=== PATIENT | female | born 1980 ===

== ENCOUNTER 2016-06-30 09:48 | Emergency (ER) | payer OTHER ==
[2016-06-30 09:53] VITALS: TEMP 98.9; O2SAT 99
--- NOTE | 2016-06-30 10:23 | ED PDOC ---
HPI: Female Pain Time Seen by Provider: 06/30/16 09:53 Chief Complaint (Nursing): Weakness/Neurological Deficit Chief Complaint (Provider): Vomiting History Per: Patient Additional Complaint(s): pt is 12 weeks , LMP 04/06/16, , c/o feeling tired. Pt reports she did not feel this tired with her first . Pt denies nay abdominal natty, or vaginal bleeding. Pt reports that she is unsure of how to obtain gwen care, does not known how to get an [employer] and is confused on how to set up her delivery. Past Medical History Reviewed: Nursing Documentation, Vital Signs Vital Signs: Last Vital Signs Temp 98.9 F 06/30/16 09:52 Pulse 118 H 06/30/16 09:52 Resp 20 06/30/16 09:52 BP 136/84 06/30/16 09:52 Pulse Ox 99 06/30/16 09:52 - Medical History PMH: No Chronic Diseases - Surgical History Surgical History: No Surg Hx - Family History Family History: States: No Known Family Hx - Living Arrangements Living Arrangements: With Family - Social History Current smoker - smoking cessation education provided: No Alcohol: None Drugs: Denies - Allergies Allergies/Adverse Reactions: Allergies Allergy/AdvReac Type Severity Reaction Status Date / Time No Known Allergies Allergy Verified 06/30/16 10:05 Review of Systems ROS Statement: Except As Marked, All Systems Reviewed And Found Negative Physical Exam - Reviewed Nursing Documentation Reviewed: Yes Vital Signs Reviewed: Yes - Physical Exam Appears: Positive for: Well, Non-toxic, No Acute Distress Head Exam: Positive for: ATRAUMATIC, NORMAL INSPECTION, NORMOCEPHALIC Skin: Positive for: Normal Color, Warm, DRY Eye Exam: Positive for: EOMI, Normal appearance, PERRL ENT: Positive for: Normal ENT Inspection Neck: Positive for: Normal, Painless ROM Cardiovascular/Chest: Positive for: Regular Rate, Rhythm Respiratory: Positive for: CNT, Normal Breath Sounds Gastrointestinal/Abdominal: Positive for: Normal Exam, Bowel Sounds, Soft Back: Positive for: Normal Inspection Extremity: Positive for: Normal ROM Neurologic/Psych: Positive for: Alert, Oriented - ECG O2 Sat by Pulse Oximetry: 99 Medical Decision Making Medical Decision Making: Pt educated on related symptoms and how every is different. Pt placed in contact with registration in regards to questions about gwen care Pt given women's clinic to follow up with. Advised to return to ED if at anytime condition worsens Disposition - Clinical Impression Clinical Impression: -related symptom - Patient ED Disposition Is Patient to be Admitted: No - Disposition Disposition: Routine/Home Disposition Time: 10:33 Condition: STABLE - POA Present On Arrival: None
[2016-06-30 11:07] VITALS: BP 132/84; PULSE 91; RESP 18
== END 2016-06-30 10:35 | disposition home or self-care (01) ==
LOC: H.ER 09:48
DX: O21.9 Vomiting of pregnancy, unspecified (principal)

== ENCOUNTER 2017-01-06 08:14 | Inpatient (IN) | payer MEDICAID, SELFPAY ==
[2017-01-06 08:10] VITALS: BMI 43.2
[~2017-01-06 08:14] MED LIST: ceFAZolin IV 2 gm in Dextrose 2 GM/50 ML BAG IVPB ONE
[2017-01-06] MEDS ORDERED: Oxytocin 30 UNITS in Sodium Chloride 0.9% 500 ML IV ONE (08:18)
[2017-01-06] MEDS: Lactated Ringer's 1,000 ML IV SCH ×6 (08:30→20:46)
[2017-01-06 08:59] LABS: BASO % 0.2 % (0.0-2.0); EOS # 0.1 K/uL (0.0-0.7); EOS % 0.5 % (0.0-4.0); HEMATOCRIT 39.5 % (34.0-47.0); LYMPH # 2.2 K/uL (1.0-4.3); LYMPH % 16.5 % (20.0-40.0); MEAN CELL VOLUME 84.3 fl (81.0-99.0); MEAN CORPUSCULAR HEMOGLOBIN 27.5 pg (27.0-31.0); MEAN CORPUSCULAR HGB CONC 32.7 g/dL (33.0-37.0); MEAN PLATELET VOLUME 7.8 fl (7.2-11.7); MONO # 0.7 K/uL (0.0-0.8); MONO % 4.9 % (0.0-10.0); NEUT # 10.6 K/uL (1.8-7.0); NEUT % 77.9 % (50.0-75.0); NRBC % 0.1 % (0.0-0.0); RED CELL DISTRIBUTION WIDTH 17.3 % (11.5-14.5); WHITE BLOOD COUNT 13.6 K/uL (4.8-10.8)
[2017-01-06] MEDS ORDERED: Morphine 1 mg/ml preservative-free Inj(Duramorph) ONE (11:02)
[2017-01-06] MEDS ORDERED: ePHEDrine 50 mg/ml Inj ONE (12:18)
[2017-01-06] MEDS ORDERED: Naloxone 0.4 mg/ml Inj (Adult) IVP PRN (12:43)
[2017-01-06] MEDS ORDERED: Morphine 1 mg/ml preservative-free Inj(Duramorph) IT ONE (12:43)
[2017-01-06] MEDS ORDERED: DiphenhydrAMINE 50 mg/ml Inj IVP PRN (12:43)
[2017-01-06] MEDS ORDERED: Oxycodone/Acetaminophen 5/325 mg Tab PO PRN ×2 (13:28)
--- NOTE | 2017-01-06 13:29 | OBADHP ---
Datetime: 01/06/2017 08:22 Admit Comment, IP Provider: 36 yr old F at 39.2 wks GA , AMA, obese, GBS +, PPD+, CXR negative presents for scheduled repeat with BTL. Patient denies vaginal bleeding, leakage of fluid o r contractions. + movement. Denies any complications throughout this . Received routin e care at [facility]. labs: 3rd trimester HIV neg, RPR non-reactive, GBS negative, Gc/Ch neg/neg, PPD positive, CXR negative, HepB Ag neg, Rubella Immune, blood type A pos, Rh pos, Antibody negative, 1st tri scre ening within normal limits, limited/poor penetration on 2nd tri Level II US (patient did not get feta l echo recommended by MF ) OBhx: 2015 primary due to oligohydramnios PMHx: obesity SurgHx: FMHx: Mother HTN SocialHx: denies smoking, Etoh or drugs Meds: vitamins and ferrous sulfate Allergies: NKDA PE: General: patient comfortable and in no acute distress HEENT: normocephalic, atraumatic Cardiovascular: S1 S2 normal, no murmurs, rubs or gallops Lungs: clear to auscultation bilaterally Abd: bowel sounds present, nontender Extremities: full ROM, no calf tenderness, no edema Monitoring: FHR 145 bpm, moderate variability 6-25 bpm, accelerations 15x15, no deceleration s A: 36 yr old F at 39.2 wks GA , AMA, obese, GBS +, PPD+, CXR negative for scheduled repeat c- section with BTL P: -Admit to labor and delivery for repeat with BTL -NPO diet, continuous monitoring, -IV insertion, CBC, type and screen, Ancef 2gm, LR 1L bolus -VS Q4, Surgical prep, SCD PRN, Anesthesia consult Patient seen and case discussed with Dr. Pedro Henderson M.D. PGY2 Agree with above H+P Extremities - PN: Normal Abdomen - PN: Normal Back - PN: Normal Lungs - PN: Normal Heart - PN: Normal Neurologic - PN: Normal HEENT - PN: Normal General - PN: Normal Presentation-Admit: Vertex FHR - Baseline A Provider: 145 Gestation - Est Wks by US: 39.2 Vital Signs Provider: Reviewed IP Chief Complaint: Scheduled Section NICHD Variability Prov Fetus A: Moderate 6-25bpm NICHD Accel Fetus A IP Provider: [id number] FHR Category Provider Fetus A: Category I NICHD Decel Fetus A IP Provider: None DTRs - PN: Normal EGA AdmitDate IP: 39.2 IP Adm Impression: Term, intrauterine IP Admit Plan: Admit to unit; Initiate Section protocol
--- NOTE | 2017-01-06 13:29 | OBDS ---
DELIVERY PERSONNEL Delivery Doctor: Sharon Carlson MD/Dr Quinones Scrub Nurse: Aydee Miranda OBT Sap Administrator: Yung Healy RN/Shelbie Anesthesiologist: Dr Hernandez Resident: Dr Gray MATERNAL INFORMATION Delivery Anesthesia: Spinal Medications in Delivery: Pitocin Placenta Cultured: No Maternal Complications: None Provider Comments: See Operative report for delivery information LABOR SUMMARY EDC: 01/11/2017 00:00 No. Babies in Womb: 1 Attempted: No Labor Anesthesia: None LABOR INFORMATION Reason for Induction: Not Applicable Oxytocin: N/A Group B Beta Strep: Negative Antibiotics # of Doses: Ancef 2 grams Antibiotics Time of Last Dose: 10:30 Steroids Given: None Reason Steroids Not Administered: Not Applicable MEMBRANES Membranes Rupture Method: Artificial STAGES OF LABOR Stage 3 hrs: 0 Stage 3 min: 1 CSECTION DELIVERY Primary Indication: Repeat Elective Secondary Indication: Other tubal ligation CSection Urgency: Elective CSection Incidence: Repeat Labor: N/A CSection Incision: Lower Uterine Transverse Sterilization Procedure: Jim BABY A INFORMATION Infant Delivery Date/Time: 01/06/2017 12:40 Method of Delivery: Born in Route : No : N/A Forceps: N/A Vacuum Extraction: N/A Shoulder Dystocia : No SHOULDER DYSTOCIA BABY A Delivery Date/Time: 01/06/2017 12:40 PRESENTATION/POSITION BABY A Presentation: Cephalic Cephalic Presentation: Vertex Breech Presentation: N/A PLACENTA INFORMATION BABY A Placenta Delivery Time : 01/06/2017 12:41 Placenta Method of Delivery: Expressed Placenta Status: Delivered INFANT INFORMATION BABY A Gestational Age at Delivery: 39.2 Gestational Status: Term Outcome : Liveborn Condition : Stable Sex: Female IDENTIFICATION/MEDS BABY A ID Band Number: [id number] ID Band Location: Left Leg Vitamin K Given : Not Given Erythromycin Given: Not Given WEIGHT/LENGTH BABY A Infant Birthweight (gms): 3095 Infant Weight (lb): 6 Infant Weight (oz): 13 Infant Length Inches: 19.50 Length cms: 49.5 CORD INFORMATION BABY A No. Cord Vessels: 3 Nuchal Cord : Around Neck x1, Loose
[2017-01-07 07:50] LABS: BASO % 0.2 % (0.0-2.0); EOS # 0.1 K/uL (0.0-0.7); EOS % 0.5 % (0.0-4.0); HEMATOCRIT 33.5 % (34.0-47.0); LYMPH # 1.9 K/uL (1.0-4.3); LYMPH % 14.7 % (20.0-40.0); MEAN CORPUSCULAR HEMOGLOBIN 27.5 pg (27.0-31.0); MEAN CORPUSCULAR HGB CONC 32.4 g/dL (33.0-37.0); MEAN PLATELET VOLUME 7.8 fl (7.2-11.7); MONO # 0.7 K/uL (0.0-0.8); MONO % 5.6 % (0.0-10.0); RED CELL DISTRIBUTION WIDTH 17.4 % (11.5-14.5); WHITE BLOOD COUNT 12.7 K/uL (4.8-10.8)
--- NOTE | 2017-01-07 15:55 | OBPPN ---
Datetime: 01/07/2017 15:53 PP Pain Prov: Within normal limits PP Nausea Prov: Denies PP Flatus Prov: Yes PP Breasts Prov: Not Done PP Heart Prov: Normal PP Lungs Prov: Normal PP Abdomen/Uterus Prov: Normal PP Lochia Prov: Not Done PP Vulva/Perineum Prov: Not Done PP CVA Tenderness Prov: Normal PP Extremities Prov: Normal PP Impression Prov: Normal progression PP Progress Note Prov: Doing well Vital Signs Provider PP: Reviewed Datetime: 01/07/2017 06:16 PP BM Prov: No PP C/S Incision Prov: Normal PP Progress Prov: Normal PP Plan Prov: Continue present management
--- NOTE | 2017-01-08 10:15 | OBPPN ---
Datetime: 01/08/2017 07:09 PP Pain Prov: Within normal limits PP Nausea Prov: Denies PP Flatus Prov: Yes PP BM Prov: Yes PP Breasts Prov: Normal PP Heart Prov: Normal PP Lungs Prov: Normal PP Abdomen/Uterus Prov: Normal PP Lochia Prov: Normal PP Vulva/Perineum Prov: Normal PP CVA Tenderness Prov: Not Done PP Extremities Prov: Normal PP C/S Incision Prov: Normal PP Progress Prov: Normal PP Impression Prov: Normal progression PP Plan Prov: Continue present management PP Progress Note Prov: S: pt seen and examined bedside this AM. Baby is in bed with mother. POD2, s/ p repeat . No acute overnight events. Pt endorses mild pelvic pain, but drastic improvement per pt then yesterday. Pt is ambulating around the room, to and from the bathroom, states that she wi ll try to walk around the hallway today. Breast feeding baby without difficulties. Tolerating diet. L ochia is like menses. Had a BM this AM, +/+ gas, BM. Denies fever, chills, headache, chest pain, dysp yoko, palpitations, n/v/d/c and remains afebrile. O: VS stable GEN: AA, NAD Cardio: S1S2 no M/G/R Resp: vesicular breathing b/l Abdomen: [place] intact. Tenderness to palpation in pelvic area, incision intact, no discharge, no erythema, no dehiscence. Fundus below the umbilicus and firm. BS+ Neuro: AAO x 3 Ext: mild edema noted up to the mid-calf, no tenderness Assessment/Plan: 36 YO delivered @ 39wks to a baby girl via repeat on 01/06/17. Doing well POD2. OOB with caution SCD's for DVT prophylaxis, ambulating Percocet 5/325mg 1-2 tablets po q6 for mod/sev pain Ibuprofen for mild-mod pain Encourage and ambulation Senakot 17.2mg PO qHS Adjust meds as needed Will continue PP management Tanisha Cecil, PGY I obh addendum: pt seen _ examined by me. agree w/ above assessment and plan. Vital Signs Provider PP: Reviewed; Within Normal Limits
--- NOTE | 2017-01-09 11:10 | OBPPN ---
Datetime: 01/09/2017 07:03 PP Pain Prov: Within normal limits PP Nausea Prov: Denies PP Flatus Prov: Yes PP BM Prov: Yes PP Breasts Prov: Normal PP Heart Prov: Normal PP Lungs Prov: Normal PP Abdomen/Uterus Prov: Normal PP Lochia Prov: Normal PP Vulva/Perineum Prov: Normal PP CVA Tenderness Prov: Not Done PP Extremities Prov: Normal PP C/S Incision Prov: Normal PP Progress Prov: Normal PP Impression Prov: Normal progression PP Plan Prov: Continue present management; Discharge PP Progress Note Prov: S: pt seen and examined bedside this AM. POD3, s/p repeat . No acute overnight events. Baby is by bedside. Pt endorses mild pelvic pain, but better with meds. Pt is ambu lating in room and in the hallway. Breast feeding baby without difficulties. Tolerating regular diet this AM. Lochia is like menses. +/+ gas, BM. Denies fever, chills, headache, chest pain, dyspnea, pal pitations, n/v/d/c and remains afebrile. O: VS stable GEN: AA, NAD Cardio: S1S2 no M/G/R Resp: vesicular breathing b/l Abdomen: [place] intact. Tenderness to palpation in pelvic area, incision intact, no discharge, no erythema, no dehiscence. Fundus is below the umbilicus and firm. BS+ Neuro: AAO x 3 Ext: no edema noted, no calf tenderness Assessment/Plan: 36 YO delivered @ 39wks to a baby girl via repeat on 01/06/17. Doing well POD3. OOB with caution SCD's for DVT prophylaxis, ambulating Percocet 5/325mg 1-2 tablets po q6 for mod/sev pain Ibuprofen for mild-mod pain Encourage and ambulation Senakot 17.2mg PO qHS Follow up pcbc Adjust meds as needed Will d/c pt home today with WC and PP follow up Please call to make apt for baby in 3-4days Tanisha Jacob, PGY I Addendum by Dr. Ball: Patient evaluated independently and I agree with the above. patient for dis charge Vital Signs Provider PP: Reviewed; Within Normal Limits
--- NOTE | 2017-01-09 11:12 | OBDCSUM ---
Datetime: 01/09/2017 07:05 Discharged to, Provider: Home Follow up at, Provider: [facility] Disch Instr Activity: Normal activity; May be up to bathroom; May be up for meals; May Shower Disch Instr Diet: Regular Discharge Instructions, Provider: Routine instructions given Discharge Diagnosis, Provider: Term Delivered Discharge Time: 01/09/2017 12:00 Follow up in weeks, Provider: 1 wk and 6 wks Disch Referrals: None Contraception discussed, Prov: Yes Disch Activity Restrictions: No exercising; No lifting; Minimize stair-climbing; No sexual activity; Nothing in vagina - [place], tampons, douche Discharge Comment, Provider: 36 YO delivered @ 39wks to a baby girl via repeat on . Uncomplicated course. Lochia is minimal, pt is ambulating, tolerating PO diet, and remains afebrile. 1. Encourage 2. PNV 1 tab po q/day 3. Percocet, Ibuprofen for pain. Senokot for constipation. 4. Ambulatory with caution, nothing per vagina, no heavy lifting, avoid stairs, if excessive bleed ing or fever without relief from Tylenol go to ED 5. F/U CF for WC on 01/14/17 @ 1:00 PP for 02/09/17 @ 3:20 Baby on 01/14/17 @ 1:00 Tanisha Jacob, PGY I Contraception after Delivery: Foam/Condoms; Undecided
[2017-01-09 18:23] VITALS: BP 114/73; PULSE 72; RESP 20; TEMP 98.5; O2SAT 99
--- NOTE | 2017-01-12 14:37 | OP ---
DATE OF PROCEDURE: 01/06/2017 PREOPERATIVE DIAGNOSES: Term with previous section, desires repeat section and permanent sterilization. POSTOPERATIVE DIAGNOSES: Term with previous section, desires repeat section and permanent sterilization, delivered. SURGEON: Armen Guallpa MD. CUSTODIAL MANAGER: Keith Rosado MD. FINDINGS: A live female with 's of 9 and 9, weight 3095 g. IV FLUID INTAKE: 1100 mL. ESTIMATED BLOOD LOSS: 800 mL. URINE OUTPUT: 200 mL, clear, at the end of the procedure. Armen Guallpa MD
== END 2017-01-09 13:30 | disposition home or self-care (01) | DRG 766 ==
LOC: H.L&D 08:14 → H.OB/GYN 16:23
PROVIDERS: ADMIT Obstetrics & Gynecology; ATTEND Obstetrics & Gynecology
PROC: 10D00Z1 Extraction of Products of Conception, Low, Open Approach (ICD-10-PCS; principal; 2017-01-06)
PROC: 0UL70ZZ Occlusion of Bilateral Fallopian Tubes, Open Approach (ICD-10-PCS; 2017-01-06)
PROC: 4A1HXCZ Monitoring of Products of Conception, Cardiac Rate, External Approach (ICD-10-PCS; 2017-01-06)
DX: O34.219 Maternal care for unspecified type scar from previous cesarean delivery (principal); N85.8 Other specified noninflammatory disorders of uterus; Z37.0 Single live birth; O69.81X0 Labor and delivery complicated by cord around neck, without compression, not applicable or unspecified; Z3A.39 39 weeks gestation of pregnancy; Z82.49 Family history of ischemic heart disease and other diseases of the circulatory system